=== PATIENT | male | born 1960 | race American Indian/Alaskan Native ===

== ENCOUNTER 2017-12-10 20:44 | Emergency (ER) | payer SELFPAY ==
[2017-12-10] MEDS ORDERED: NACL 0.9% 1000 ML 1,000 ML IV ONE (21:03)
[2017-12-10 21:53] LABS: Basophils % (Auto) 0.3 % (0.0-1.8); Eosinophils # (Auto) 0.1 K/mm3 (0.0-0.4); Eosinophils % (Auto) 1.2 % (0.0-4.3); Hematocrit 38.1 % (35.5-45.6); Hemoglobin 12.4 gm/dl (11.8-15.2); Lymphocytes # (Auto) 2.6 K/mm3 (1.2-5.4); Mean Corpuscular HGB Conc 33 % (32-34); Mean Corpuscular Hemoglobin 28 pg (28-32); Mean Corpuscular Volume 86 fl (84-94); Monocytes # (Auto) 0.6 K/mm3 (0.0-0.8); Platelet Count 193 K/mm3 (140-440); Red Blood Count 4.45 M/mm3 (3.65-5.03); Red Cell Distribution Width 15.2 % (13.2-15.2)
[2017-12-10 22:04] LABS: Alanine Aminotransferase 22 units/L (7-56); Albumin 4.4 g/dL (3.9-5); BUN/Creatinine Ratio 23; Blood Urea Nitrogen 16 mg/dL (9-20); Hemolysis Index 18; Lipase 247 units/L (13-60)
--- NOTE | 2017-12-10 22:23 | XRay Report ---
FINAL REPORT EXAM: XR ABDOMEN 2V HISTORY: pain TECHNIQUE: Frontal views of the abdomen and pelvis in the supine and upright positions Comparison: None FINDINGS: The bowel gas pattern is nonspecific with air in mildly distended loops of small bowel and colon with air-fluid levels on the upright view. There is no evidence of pneumoperitoneum nor organomegaly. There are calcifications projected in the region of the right kidney which may represent renal stones. The bony structures are unremarkable. IMPRESSION: 1. Nonspecific bowel gas pattern with air-fluid levels on the upright view. 2. Probable renal stones. CT abdomen and pelvis may be helpful for further evaluation.
--- NOTE | 2017-12-11 00:27 | Emergency Department Report ---
ED Abdominal Pain HPI - General Chief Complaint: Abdominal Pain Stated Complaint: CONSTIPATION,VOMITING Time Seen by Provider: 12/11/17 00:15 Source: patient Mode of arrival: Ambulatory Limitations: No Limitations - History of Present Illness Initial Comments: Patient is a 27-year-old male presents emergency room with abdominal pain 2 days. Patient states the abdominal pain is worsening. Patient states she has been constipated for the last 2 days and now he is having nausea and vomiting unable to hold any food down. Patient states the pain is generalized and at a 10 out of 10. States the pain is better with rest and worse with movement. She denies fever chills. Patient denies blood in his vomitus. Patient denies chest pain shortness of breath. MD Complaint: abdominal pain -: Sudden Location: diffuse Radiation: none Migration to: no migration Severity: severe Severity scale (0 -10): 10 Quality: cramping, stabbing, aching, fullness Consistency: constant Improves With: rest Worsens With: eating, vomiting, movement Associated Symptoms: nausea, vomiting, constipation. denies: diarrhea, fever, chills, dysuria, hematemesis, hematochezia, melena, hematuria, anorexia, syncope - Related Data Allergies Allergy/AdvReac Type Severity Reaction Status Date / Time No Known Allergies Allergy Verified 12/11/17 00:31 ED Review of Systems ROS: Stated complaint: CONSTIPATION,VOMITING Other details as noted in HPI Constitutional: denies: chills, fever Eyes: denies: eye pain, eye discharge, vision change ENT: denies: ear pain, throat pain Respiratory: denies: cough, shortness of breath, wheezing Cardiovascular: denies: chest pain, palpitations Endocrine: no symptoms reported Gastrointestinal: abdominal pain, nausea, vomiting, constipation. denies: diarrhea Genitourinary: denies: urgency, dysuria Musculoskeletal: denies: back pain, joint swelling, arthralgia Skin: denies: rash, lesions Neurological: denies: headache, weakness, paresthesias Psychiatric: denies: anxiety, depression Hematological/Lymphatic: denies: easy bleeding, easy bruising ED Past Medical Hx - Past Medical History Previous Medical History?: Yes Hx Hypertension: Yes Additional medical history: gout, - Surgical History Past Surgical History?: No - Family History Family history: no significant - Social History Smoking Status: Current Every Day Smoker Substance Use Type: Alcohol ED Physical Exam - General Limitations: No Limitations General appearance: alert, in no apparent distress - Head Head exam: Present: atraumatic, normocephalic - Eye Eye exam: Present: normal appearance - ENT ENT exam: Present: mucous membranes moist - Neck Neck exam: Present: normal inspection - Respiratory Respiratory exam: Present: normal lung sounds bilaterally. Absent: respiratory distress - Cardiovascular Cardiovascular Exam: Present: regular rate, normal rhythm. Absent: systolic murmur, diastolic murmur, rubs, gallop - GI/Abdominal GI/Abdominal exam: Present: soft, tenderness (generalized tenderness to palpation), normal bowel sounds - Rectal Rectal exam: Present: deferred - Extremities Exam Extremities exam: Present: normal inspection - Back Exam Back exam: Present: normal inspection - Neurological Exam Neurological exam: Present: alert, oriented X3 - Psychiatric Psychiatric exam: Present: normal affect, normal mood - Skin Skin exam: Present: warm, dry, intact, normal color. Absent: rash ED Course Vital Signs 12/10/17 12/10/17 12/11/17 20:53 20:59 00:32 Temperature 98.5 F 98.5 F Pulse Rate 103 H 103 H Respiratory 20 18 Rate Blood Pressure 176/104 174/103 174/92 O2 Sat by Pulse 100 Oximetry 12/11/17 00:36 Temperature Pulse Rate Respiratory 19 Rate Blood Pressure O2 Sat by Pulse Oximetry - Reevaluation(s) Reevaluation #1: Umesh results with patient. Discussed plan of care admit patient. Patient agrees to admission and plan of care 12/11/17 03:43 - Consultations Consultation #1: Hospitalist consulted for admission. Hospitalist to admit and assume care of the patient. Full report given to Dr. Vieira 12/11/17 03:41 ED Medical Decision Making - Lab Data Result diagrams: 12/10/17 21:16 12/10/17 21:16 - Radiology Data Radiology results: report reviewed FINAL REPORT EXAM: XR ABDOMEN 2V HISTORY: pain TECHNIQUE: Frontal views of the abdomen and pelvis in the supine and upright positions Comparison: None FINDINGS: The bowel gas pattern is nonspecific with air in mildly distended loops of small bowel and colon with air-fluid levels on the upright view. There is no evidence of pneumoperitoneum nor organomegaly. There are calcifications projected in the region of the right kidney which may represent renal stones. The bony structures are unremarkable. IMPRESSION: 1. Nonspecific bowel gas pattern with air-fluid levels on the upright view. 2. Probable renal stones. CT abdomen and pelvis may be helpful for further evaluation. Transcribed By: ED Dictated By: EULA NELSNO MD Electronically Authenticated By: EULA NELSON MD Signed Date/Time: 12/10/17 2222 FINAL REPORT PROCEDURE: CT ABDOMEN PELVIS W CON TECHNIQUE: Computerized axial tomography of the abdomen and pelvis was performed after the IV injection of iodinated nonionic contrast. HISTORY: abd pain COMPARISON: No prior studies are available for comparison. FINDINGS: Visualized lower thorax: No significant abnormality. Liver: Normal size and attenuation. Spleen: Normal size and attenuation. Gallbladder and biliary system: Normal. Pancreas: Normal. Adrenals: Normal. Kidneys: There are tiny stones in the right kidney. There are no ureteral stones. There is no hydronephrosis.. GI tract: There is moderate stool in the colon. There is no fecal impaction or obstruction. There is no specific evidence of colitis or enteritis. The appendix is normal. Lymph nodes and mesentery: Normal. Vasculature: Normal. Bladder: Normal. Reproductive organs: There has been a hysterectomy. Peritoneum: There is no ascites or free air, abscess or adenopathy.. Musculoskeletal structures: No significant abnormality. Other: None. IMPRESSION: There are tiny stones in the right kidney. There are no ureteral stones. There is no hydronephrosis.. There is moderate stool in the colon. There is no fecal impaction or obstruction. There is no specific evidence of colitis or enteritis. The appendix is normal. There has been a hysterectomy. There is no ascites or free air, abscess or adenopathy.. Transcribed By: CO Dictated By: ABISAI ENGLE MD Electronically Authenticated By: ABISAI ENGLE MD Signed Date/Time: 12/11/17 2798 - Medical Decision Making Patient is a 57-year-old mellitus emergency room with complaints of abdominal pain and nausea and vomiting 2 days. - Differential Diagnosis abd pain. sbo. n/v. Gastroenteritis. Dehydration Critical Care Time: Yes Critical care attestation.: If time is entered above; I have spent that time in minutes in the direct care of this critically ill patient, excluding procedure time. Critical Care Time: 35 minutes for cc time ED Disposition Clinical Impression: Hyponatremia, Hypokalemia, Dehydration Abdominal pain Qualifiers: Abdominal location: generalized Qualified Code(s): R10.84 - Generalized abdominal pain Nausea & vomiting Qualifiers: Vomiting type: unspecified Vomiting Intractability: intractable Qualified Code( s): R11.2 - Nausea with vomiting, unspecified Constipation Qualifiers: Constipation type: unspecified constipation type Qualified Code(s): K59.00 - Constipation, unspecified Disposition: -09 OP ADMIT IP TO THIS HOSP Is pt being admited?: Yes Does the pt Need Aspirin: No Condition: Serious Time of Disposition: 03:41
--- NOTE | 2017-12-11 03:39 | Cat Scan Report ---
FINAL REPORT PROCEDURE: CT ABDOMEN PELVIS W CON TECHNIQUE: Computerized axial tomography of the abdomen and pelvis was performed after the IV injection of iodinated nonionic contrast. HISTORY: abd pain COMPARISON: No prior studies are available for comparison. FINDINGS: Visualized lower thorax: No significant abnormality. Liver: Normal size and attenuation. Spleen: Normal size and attenuation. Gallbladder and biliary system: Normal. Pancreas: Normal. Adrenals: Normal. Kidneys: There are tiny stones in the right kidney. There are no ureteral stones. There is no hydronephrosis.. GI tract: There is moderate stool in the colon. There is no fecal impaction or obstruction. There is no specific evidence of colitis or enteritis. The appendix is normal. Lymph nodes and mesentery: Normal. Vasculature: Normal. Bladder: Normal. Reproductive organs: There has been a hysterectomy. Peritoneum: There is no ascites or free air, abscess or adenopathy.. Musculoskeletal structures: No significant abnormality. Other: None. IMPRESSION: There are tiny stones in the right kidney. There are no ureteral stones. There is no hydronephrosis.. There is moderate stool in the colon. There is no fecal impaction or obstruction. There is no specific evidence of colitis or enteritis. The appendix is normal. There has been a hysterectomy. There is no ascites or free air, abscess or adenopathy..
[2017-12-11] MEDS ORDERED: K-DUR PO ONE ×2 (05:32→05:39)
[2017-12-11 05:54] VITALS: BP 173/106
--- NOTE | 2017-12-11 05:55 | Event Note ---
<PAUL BONILLA - Last Filed: 12/11/17 05:39> Date: 12/11/17 Pt refuses too be admitted, risk of leaving the hospital AMA was explained to pt , voiced understanding. <BOSSMAN TOMLINSON - Last Filed: 12/11/17 06:27> Discussed with patient admission, states he has to go to work. Risks and benefits explained to him. Replete potassium. Instructed to follow with his doctor as soon as possible
== END 2017-12-11 05:54 | disposition admitted as inpatient to this hospital (09) ==
LOC: EDSEX → ED 20:44
DX: E87.1 Hypo-osmolality and hyponatremia (principal); E86.0 Dehydration; K59.00 Constipation, unspecified; R11.2 Nausea with vomiting, unspecified; R10.84 Generalized abdominal pain; I10 Essential (primary) hypertension; M10.9 Gout, unspecified; F17.200 Nicotine dependence, unspecified, uncomplicated
CPT/HCPCS: 36415; 74019; 74177; 80053; 82140; 83690; 85025; 99291; Q9967

== ENCOUNTER 2017-12-11 10:22 | Emergency (ER) | payer SELFPAY ==
[2017-12-11 10:52] LABS: Basophils % (Auto) 0.5 % (0.0-1.8); Eosinophils % (Auto) 0.7 % (0.0-4.3); Hematocrit 37.6 % (35.5-45.6); Hemoglobin 12.6 gm/dl (11.8-15.2); Lymphocytes # (Auto) 2.2 K/mm3 (1.2-5.4); Lymphocytes % (Auto) 40.9 % (13.4-35.0); Mean Corpuscular HGB Conc 34 % (32-34); Mean Corpuscular Hemoglobin 28 pg (28-32); Mean Corpuscular Volume 83 fl (84-94); Monocytes # (Auto) 0.6 K/mm3 (0.0-0.8); Monocytes % (Auto) 11.7 % (0.0-7.3); Platelet Count 193 K/mm3 (140-440); Red Blood Count 4.55 M/mm3 (3.65-5.03); Red Cell Distribution Width 15.2 % (13.2-15.2)
[2017-12-11 11:09] LABS: Hemolysis Index 0
[2017-12-11] MEDS ORDERED: PROTONIX IV ONE ×2 (11:09→14:39)
[2017-12-11] MEDS ORDERED: MORPHINE IV ONE (11:09)
[2017-12-11] MEDS ORDERED: ZOFRAN IV ONE (11:09)
[2017-12-11 11:11] LABS: Creatine Kinase MB 5.1 ng/mL (0.0-4.0)
[2017-12-11 11:12] LABS: Alanine Aminotransferase 21 units/L (7-56); Albumin 4.6 g/dL (3.9-5); Lipase 187 units/L (13-60)
[2017-12-11 11:18] LABS: Bilirubin,Direct < 0.2 mg/dL (0-0.2)
--- NOTE | 2017-12-11 11:34 | Emergency Department Report ---
ED Abdominal Pain HPI - General Chief Complaint: Abdominal Pain Stated Complaint: GENERAL ILLNESS Time Seen by Provider: 12/11/17 10:42 Source: patient, EMS Mode of arrival: Ambulatory Limitations: No Limitations - History of Present Illness Initial Comments: 57-year-old male states she's had intermittent abdominal pain for the last 4 days. He states it does not radiate. He is admittedly noncompliant with his blood pressure medicine which she does not recall the name of except that it started with a "P". He was seen here yesterday. It appears he'll looked or left AGAINST MEDICAL ADVICE at about 6 AM he states when mission was recommended. Yesterday I do note his laboratory tests suggested that he had an elevated lipase and metabolic acidosis as well as hyponatremia and hypokalemia. He states he has been vomiting. He states he went home and tried to drink something but vomited. Then he decided to come back. He stated that his emesis has occasionally been dark but he has not seen any blood. He denied any dark, black or tarry stools. He does not report fever or chills. He states he' s never been to the emergency department for evaluation of abdominal pain. He admits alcohol use but states he has no shakiness when he stops drinking. His had no recent alcohol consumption. He describes pain as a dull ache in the epigastric region. MD Complaint: abdominal pain -: days(s) Location: epigastric Radiation: none Migration to: no migration Severity: moderate Quality: aching Consistency: intermittent Improves With: nothing Worsens With: nothing Associated Symptoms: vomiting - Related Data Allergies Allergy/AdvReac Type Severity Reaction Status Date / Time No Known Allergies Allergy Verified 12/11/17 00:31 ED Review of Systems ROS: Stated complaint: GENERAL ILLNESS Other details as noted in HPI Constitutional: weakness. denies: chills, fever Eyes: denies: eye pain, eye discharge, vision change ENT: denies: ear pain, throat pain Respiratory: denies: cough, shortness of breath, wheezing Cardiovascular: denies: chest pain, palpitations Endocrine: no symptoms reported Gastrointestinal: abdominal pain, nausea, vomiting. denies: diarrhea Genitourinary: denies: urgency, dysuria Musculoskeletal: denies: back pain, joint swelling, arthralgia Skin: denies: rash, lesions Neurological: denies: headache, weakness, paresthesias Psychiatric: denies: anxiety, depression Hematological/Lymphatic: denies: easy bleeding, easy bruising ED Past Medical Hx - Past Medical History Previous Medical History?: Yes Hx Hypertension: Yes Hx Arthritis: Yes (GOUT) Additional medical history: gout, - Surgical History Past Surgical History?: No - Social History Smoking Status: Current Every Day Smoker Substance Use Type: Alcohol ED Physical Exam - General Limitations: No Limitations General appearance: alert, in no apparent distress - Head Head exam: Present: atraumatic, normocephalic - Eye Eye exam: Present: normal appearance. Absent: PERRL, EOMI, scleral icterus - ENT ENT exam: Present: mucous membranes moist - Neck Neck exam: Present: normal inspection. Absent: tenderness, meningismus - Respiratory Respiratory exam: Present: normal lung sounds bilaterally. Absent: respiratory distress - Cardiovascular Cardiovascular Exam: Present: regular rate, normal rhythm. Absent: systolic murmur, diastolic murmur, rubs, gallop - GI/Abdominal GI/Abdominal exam: Present: soft, tenderness (epigastric mild to moderate), normal bowel sounds. Absent: distended, guarding, rebound, rigid, organomegaly , mass, bruit, pulsatile mass, hernia - Rectal Rectal exam: Present: deferred - Extremities Exam Extremities exam: Present: normal inspection - Back Exam Back exam: Present: normal inspection. Absent: CVA tenderness (R), CVA tenderness (L) - Neurological Exam Neurological exam: Present: alert, oriented X3, CN II-XII intact. Absent: motor sensory deficit - Psychiatric Psychiatric exam: Present: normal affect, normal mood - Skin Skin exam: Present: warm, dry, intact, normal color. Absent: rash ED Course Vital Signs 12/11/17 10:24 Temperature 98.4 F Pulse Rate 109 H Respiratory 16 Rate Blood Pressure 165/113 O2 Sat by Pulse 100 Oximetry - Reevaluation(s) Reevaluation #1: Patient was given IV fluids. His blood pressure was monitored. He was found to have an extremely elevated anion gap. His lipase was less than yesterday. His CO2 was now 10 compared to 15. Additional workup for his metabolic acidosis was ordered. He was given IV antibiotics for possible intra-abdominal infection. A repeat CT was ordered. A lactic acid level is pending. Obviously the patient will be admitted to the hospital. Further diagnostic screening is pending. I will confer with the hospitalist. 12/11/17 12:16 Reevaluation #2: I spoke to the left now twice about repeating the patient's BMP. They tell me the volume was low. I really don't think the patient's anion gap is likely to be 68. In any case he is received IV fluids and empiric antibiotics. A repeat CT showed nothing acute and right nephrolithiasis. A urine specimen is yet pending. The case is now referred to the hospitalist further care and evaluation. The patient remains hemodynamically stable. 12/11/17 13:27 ED Medical Decision Making - Lab Data Result diagrams: 12/11/17 10:30 12/11/17 10:30 Laboratory Results - last 24 hr 12/11/17 12/11/17 12/11/17 10:30 10:30 10:30 WBC 5.5 RBC 4.55 Hgb 12.6 Hct 37.6 MCV 83 L MCH 28 MCHC 34 RDW 15.2 Plt Count 193 Lymph % (Auto) 40.9 H [place] % (Auto) 11.7 H Eos % (Auto) 0.7 Baso % (Auto) 0.5 Lymph # 2.2 [place] # 0.6 Eos # 0.0 Baso # 0.0 Seg Neutrophils % 46.2 Seg Neutrophils # 2.5 Potassium 3.1 L Chloride 60.0 L Estimated GFR > 60 Magnesium 2.10 Total Bilirubin Direct Bilirubin Indirect Bilirubin AST ALT Alkaline Phosphatase Total Creatine Kinase CK-MB (CK-2) CK-MB (CK-2) Rel Index Total Protein Albumin Albumin/Globulin Ratio Lipase 12/11/17 10:30 WBC RBC Hgb Hct MCV MCH MCHC RDW Plt Count Lymph % (Auto) [place] % (Auto) Eos % (Auto) Baso % (Auto) Lymph # [place] # Eos # Baso # Seg Neutrophils % Seg Neutrophils # Potassium Chloride Estimated GFR Magnesium Total Bilirubin 0.30 Direct Bilirubin < 0.2 Indirect Bilirubin 0.1 AST 23 ALT 21 Alkaline Phosphatase 82 Total Creatine Kinase 162 CK-MB (CK-2) 5.1 H CK-MB (CK-2) Rel Index 3.1 Total Protein 8.1 Albumin 4.6 Albumin/Globulin Ratio 1.3 Lipase 187 H Laboratory Results - last 24 hr 12/11/17 12/11/17 12/11/17 10:30 10:30 10:30 WBC 5.5 RBC 4.55 Hgb 12.6 Hct 37.6 MCV 83 L MCH 28 MCHC 34 RDW 15.2 Plt Count 193 Lymph % (Auto) 40.9 H [place] % (Auto) 11.7 H Eos % (Auto) 0.7 Baso % (Auto) 0.5 Lymph # 2.2 [place] # 0.6 Eos # 0.0 Baso # 0.0 Seg Neutrophils % 46.2 Seg Neutrophils # 2.5 Sodium 135 L D Potassium 3.1 L Chloride 60.0 L Carbon Dioxide 10 L Anion Gap 68 BUN 12 Creatinine 0.7 L Estimated GFR > 60 BUN/Creatinine Ratio 17 Glucose 175 H Calcium 9.2 Magnesium 2.10 Total Bilirubin Direct Bilirubin Indirect Bilirubin AST ALT Alkaline Phosphatase Total Creatine Kinase CK-MB (CK-2) CK-MB (CK-2) Rel Index Total Protein Albumin Albumin/Globulin Ratio Lipase 12/11/17 10:30 WBC RBC Hgb Hct MCV MCH MCHC RDW Plt Count Lymph % (Auto) [place] % (Auto) Eos % (Auto) Baso % (Auto) Lymph # [place] # Eos # Baso # Seg Neutrophils % Seg Neutrophils # Sodium Potassium Chloride Carbon Dioxide Anion Gap BUN Creatinine Estimated GFR BUN/Creatinine Ratio Glucose Calcium Magnesium Total Bilirubin 0.30 Direct Bilirubin < 0.2 Indirect Bilirubin 0.1 AST 23 ALT 21 Alkaline Phosphatase 82 Total Creatine Kinase 162 CK-MB (CK-2) 5.1 H CK-MB (CK-2) Rel Index 3.1 Total Protein 8.1 Albumin 4.6 Albumin/Globulin Ratio 1.3 Lipase 187 H Laboratory Results - last 24 hr 12/11/17 12/11/17 12/11/17 10:30 10:30 10:30 WBC 5.5 RBC 4.55 Hgb 12.6 Hct 37.6 MCV 83 L MCH 28 MCHC 34 RDW 15.2 Plt Count 193 Lymph % (Auto) 40.9 H [place] % (Auto) 11.7 H Eos % (Auto) 0.7 Baso % (Auto) 0.5 Lymph # 2.2 [place] # 0.6 Eos # 0.0 Baso # 0.0 Seg Neutrophils % 46.2 Seg Neutrophils # 2.5 PT INR APTT Sodium 135 L D Potassium 3.1 L Chloride 60.0 L Carbon Dioxide 10 L Anion Gap 68 BUN 12 Creatinine 0.7 L Estimated GFR > 60 BUN/Creatinine Ratio 17 Glucose 175 H Lactic Acid Calcium 9.2 Magnesium 2.10 Total Bilirubin Direct Bilirubin Indirect Bilirubin AST ALT Alkaline Phosphatase Ammonia Total Creatine Kinase CK-MB (CK-2) CK-MB (CK-2) Rel Index Total Protein Albumin Albumin/Globulin Ratio Lipase 12/11/17 12/11/17 12/11/17 10:30 12:11 12:11 WBC RBC Hgb Hct MCV MCH MCHC RDW Plt Count Lymph % (Auto) [place] % (Auto) Eos % (Auto) Baso % (Auto) Lymph # [place] # Eos # Baso # Seg Neutrophils % Seg Neutrophils # PT 12.5 INR 0.89 APTT 27.9 Sodium Potassium Chloride Carbon Dioxide Anion Gap BUN Creatinine Estimated GFR BUN/Creatinine Ratio Glucose Lactic Acid 2.00 Calcium Magnesium Total Bilirubin 0.30 Direct Bilirubin < 0.2 Indirect Bilirubin 0.1 AST 23 ALT 21 Alkaline Phosphatase 82 Ammonia Total Creatine Kinase 162 CK-MB (CK-2) 5.1 H CK-MB (CK-2) Rel Index 3.1 Total Protein 8.1 Albumin 4.6 Albumin/Globulin Ratio 1.3 Lipase 187 H 12/11/17 12:11 WBC RBC Hgb Hct MCV MCH MCHC RDW Plt Count Lymph % (Auto) [place] % (Auto) Eos % (Auto) Baso % (Auto) Lymph # [place] # Eos # Baso # Seg Neutrophils % Seg Neutrophils # PT INR APTT Sodium Potassium Chloride Carbon Dioxide Anion Gap BUN Creatinine Estimated GFR BUN/Creatinine Ratio Glucose Lactic Acid Calcium Magnesium Total Bilirubin Direct Bilirubin Indirect Bilirubin AST ALT Alkaline Phosphatase Ammonia 42.0 Total Creatine Kinase CK-MB (CK-2) CK-MB (CK-2) Rel Index Total Protein Albumin Albumin/Globulin Ratio Lipase Laboratory Results - last 24 hr 12/11/17 12/11/17 12/11/17 10:30 10:30 10:30 WBC 5.5 RBC 4.55 Hgb 12.6 Hct 37.6 MCV 83 L MCH 28 MCHC 34 RDW 15.2 Plt Count 193 Lymph % (Auto) 40.9 H [place] % (Auto) 11.7 H Eos % (Auto) 0.7 Baso % (Auto) 0.5 Lymph # 2.2 [place] # 0.6 Eos # 0.0 Baso # 0.0 Seg Neutrophils % 46.2 Seg Neutrophils # 2.5 PT INR APTT Sodium 135 L D Potassium 3.1 L Chloride 60.0 L Carbon Dioxide 10 L Anion Gap 68 BUN 12 Creatinine 0.7 L Estimated GFR > 60 BUN/Creatinine Ratio 17 Glucose 175 H Ketones Quantitative Lactic Acid Calcium 9.2 Magnesium 2.10 Total Bilirubin Direct Bilirubin Indirect Bilirubin AST ALT Alkaline Phosphatase Ammonia Total Creatine Kinase CK-MB (CK-2) CK-MB (CK-2) Rel Index Troponin T Total Protein Albumin Albumin/Globulin Ratio Amylase Lipase 12/11/17 12/11/17 12/11/17 10:30 12:11 12:11 WBC RBC Hgb Hct MCV MCH MCHC RDW Plt Count Lymph % (Auto) [place] % (Auto) Eos % (Auto) Baso % (Auto) Lymph # [place] # Eos # Baso # Seg Neutrophils % Seg Neutrophils # PT 12.5 INR 0.89 APTT 27.9 Sodium Potassium Chloride Carbon Dioxide Anion Gap BUN Creatinine Estimated GFR BUN/Creatinine Ratio Glucose Ketones Quantitative Lactic Acid 2.00 Calcium Magnesium Total Bilirubin 0.30 Direct Bilirubin < 0.2 Indirect Bilirubin 0.1 AST 23 ALT 21 Alkaline Phosphatase 82 Ammonia Total Creatine Kinase 162 CK-MB (CK-2) 5.1 H CK-MB (CK-2) Rel Index 3.1 Troponin T Total Protein 8.1 Albumin 4.6 Albumin/Globulin Ratio 1.3 Amylase Lipase 187 H 12/11/17 12/11/17 12/11/17 12:11 12:11 12:11 WBC RBC Hgb Hct MCV MCH MCHC RDW Plt Count Lymph % (Auto) [place] % (Auto) Eos % (Auto) Baso % (Auto) Lymph # [place] # Eos # Baso # Seg Neutrophils % Seg Neutrophils # PT INR APTT Sodium Potassium Chloride Carbon Dioxide Anion Gap BUN Creatinine Estimated GFR BUN/Creatinine Ratio Glucose Ketones Quantitative Negative Lactic Acid Calcium Magnesium Total Bilirubin Direct Bilirubin Indirect Bilirubin AST ALT Alkaline Phosphatase Ammonia 42.0 Total Creatine Kinase CK-MB (CK-2) 4.7 H CK-MB (CK-2) Rel Index Troponin T < 0.010 Total Protein Albumin Albumin/Globulin Ratio Amylase 123 Lipase Critical Care Time: Yes Critical care time in (mins) excluding proc time.: 60 Critical care attestation.: If time is entered above; I have spent that time in minutes in the direct care of this critically ill patient, excluding procedure time. ED Disposition Clinical Impression: Hyponatremia, Hypokalemia, Dehydration, Metabolic acidosis, increased anion gap Abdominal pain Qualifiers: Abdominal location: epigastric Qualified Code(s): R10.13 - Epigastric pain Nausea & vomiting Qualifiers: Vomiting type: unspecified Vomiting Intractability: non-intractable Qualified Code(s): R11.2 - Nausea with vomiting, unspecified Disposition: 09 OP ADMIT IP TO THIS HOSP Is pt being admited?: Yes Does the pt Need Aspirin: No Condition: Stable Referrals: PRIMARY CARE, [Primary Care Provider] - 3-5 Days Time of Disposition: 13:31
[2017-12-11] MEDS ORDERED: NACL 0.9% 1000 ML 1,000 ML IV ONE ×2 (11:38→13:30)
[2017-12-11 11:41] LABS: BUN/Creatinine Ratio 17; Blood Urea Nitrogen 12 mg/dL (9-20); Calcium 9.2 mg/dL (8.4-10.2)
[2017-12-11] MEDS ORDERED: ZOSYN/NS 3.375GM/50ML 3.375 GM/50 ML BAG IV ONE (12:24)
[2017-12-11 12:39] LABS: INR 0.89 (0.87-1.13)
[2017-12-11 12:40] LABS: Partial Thromboplastin Time 27.9 Sec. (24.2-36.6)
[2017-12-11 12:51] LABS: Creatine Kinase MB 4.7 ng/mL (0.0-4.0)
--- NOTE | 2017-12-11 12:57 | Cat Scan Report ---
CT ABDOMEN PELVIS WITH CONTRAST: HISTORY: Epigastric pain, metabolic acidosis. COMPARISON: 12/11/17. TECHNIQUE: Helical CT in 1.25mm intervals following IV contrast. Sagittal and coronal reconstructions. FINDINGS: Lung bases: Normal. Liver: Normal. Biliary system: Normal. Pancreas: Normal. Spleen: Normal. Kidneys/ureters/bladder: A few calyceal stones in the right kidney appears stable. The kidneys, collecting systems and bladder are within normal limits otherwise. Adrenal glands: Normal. Aorta: Normal. Intestines: No evidence for bowel obstruction or focal inflammation. Appendix: Normal. Pelvic viscera: Hysterectomy. Ascites: None. Adenopathy: None. Musculoskeletal: Intact. Mild lumbar spondylosis. IMPRESSION: No acute process is identified in the abdomen or pelvis. Right nephrolithiasis, unchanged.
[2017-12-11] MEDS ORDERED: K-DUR PO ONE (13:29)
[2017-12-11] MEDS ORDERED: THERAGRAN Tab PO ONE (13:35)
[2017-12-11 13:39] LABS: BUN/Creatinine Ratio 18; Blood Urea Nitrogen 11 mg/dL (9-20); Calcium 8.9 mg/dL (8.4-10.2); Hemolysis Index 20
[2017-12-11 14:11] LABS: Bilirubin,Urine NEG (Negative); Blood,Urine SM (Negative); Color,Urine Straw (Yellow); Mucus,Urine FEW /HPF; Protein,Urine <15 mg/dL mg/dL (Negative); Urobilinogen,Urine < 2.0 mg/dL (<2.0)
[2017-12-11 14:19] LABS: Amphetamine Screen,Urine PRESUMPTIVE NEGATIVE; Benzodiazepines Screen,Urine PRESUMPTIVE NEGATIVE; Cannabinoid Screen,Urine PRESUMPTIVE NEGATIVE; Cocaine Screen,Urine PRESUMPTIVE NEGATIVE; Methadone Screen,Urine PRESUMPTIVE NEGATIVE; Opiate Screen,Urine PRESUMPTIVE NEGATIVE
[2017-12-11] MEDS ORDERED: VITAMIN B-1 100 MG in NACL 0.9% 50 ML IV ONE (14:33)
[2017-12-11] MEDS ORDERED: CARAFATE PO ONE (14:34)
[2017-12-11 18:16] VITALS: BP 162/88
[2017-12-12] MEDS ORDERED: FOLVITE PO SCH (10:00)
== END 2017-12-11 18:36 | disposition admitted as inpatient to this hospital (09) ==
LOC: ED 10:22
DX: E86.0 Dehydration (principal); R11.2 Nausea with vomiting, unspecified; E87.6 Hypokalemia; E87.2 Acidosis; I10 Essential (primary) hypertension; M19.90 Unspecified osteoarthritis, unspecified site; F17.200 Nicotine dependence, unspecified, uncomplicated
CPT/HCPCS: 36415; 74177; 80048; 80074; 80307; 81001; 82010; 82140; 82150; 82550; 82553; 83690; 83735; 84484; 85025; 85610; 85730; 87040; 87086; 96361; 96365; 96367; 96375; 99291; C9113; G0480; J2270; J2405; J2543; J3411; J7030; Q9967; 80320

== ENCOUNTER 2018-04-27 13:17 | Emergency (ER) | payer SELFPAY ==
--- NOTE | 2018-04-27 13:26 | Emergency Department Report ---
Blank Doc - Documentation Documentation: This is a 57-year-old male that presents with nausea, vomiting, abdominal pain, and diarrhea x2 months. Patient also has left leg open wound. Denies taking medications for DM or HTN. Denies any other complaints. This initial assessment diagnostic orders/clinical plan/treatment(s) is/are subject to change based on patient's health status, clinical progression and re- assessment by fellow clinical providers in the ED. Further treatment and workup at subsequent clinical providers discretion. Patient/guardians urged not to elope from ED s their condition may be serious if not clinically assessed and managed. Initial orders include: 1-Patient sent to [facility] for further evaluation and treatment 2- LAbs 3- UA
[2018-04-27 14:30] LABS: Basophils % (Auto) 0.3 % (0.0-1.8); Eosinophils # (Auto) 0.1 K/mm3 (0.0-0.4); Eosinophils % (Auto) 0.9 % (0.0-4.3); Hematocrit 35.3 % (35.5-45.6); Hemoglobin 11.4 gm/dl (11.8-15.2); Lymphocytes # (Auto) 2.4 K/mm3 (1.2-5.4); Lymphocytes % (Auto) 35.3 % (13.4-35.0); Mean Corpuscular HGB Conc 32 % (32-34); Mean Corpuscular Volume 78 fl (84-94); Monocytes # (Auto) 0.7 K/mm3 (0.0-0.8); Monocytes % (Auto) 9.6 % (0.0-7.3); Platelet Count 310 K/mm3 (140-440); Red Blood Count 4.56 M/mm3 (3.65-5.03); Red Cell Distribution Width 18.5 % (13.2-15.2)
[2018-04-27 14:56] LABS: Alanine Aminotransferase 24 units/L (7-56); Albumin 4.2 g/dL (3.9-5); BUN/Creatinine Ratio 18; Blood Urea Nitrogen 14 mg/dL (9-20); Calcium 9.5 mg/dL (8.4-10.2); Hemolysis Index 7
--- NOTE | 2018-04-27 17:56 | Emergency Department Report ---
Vomiting/Diarrhea - HPI Chief Complaint: Nausea/Vomiting/Diarrhea Stated Complaint: DIARRHEA Time Seen by Provider: 04/27/18 13:24 Duration: 3-4 months Severity: moderate Nausea/Vomiting Severity: Mild Diarrhea Severity: None Pain Location: Other (left amor) Pain Severity: Moderate Symptoms: Yes Able to Tolerate Fluids, No Watery Diarrhea, No Bloody diarrhea, No Fever, No Recent Unusual Foods, No Recent Untreated Water, No Recent use of Antibiotics, No Family w/ Similar Symptoms, No Contacts w/ Similar Symptoms, No Rash, No Hematuria, No Recent URI Symptoms Other History: This is a 57-year-old -[place] male who presents with diarrhea for 3-4 months. He also reports abdominal pain and dysuria. Patient states he was seen here 4 months ago and diagnosed with new onset diabetes. He was started on medication but unable to refill prescriptions because he does not have a primary care provider or insurance. He reported his wounds to bilateral great toes have not improved and is the new wound to left amor that is increasing in size. ED Review of Systems ROS: Stated complaint: DIARRHEA Other details as noted in HPI Constitutional: denies: chills, fever Respiratory: denies: cough, shortness of breath, wheezing Cardiovascular: denies: chest pain, palpitations Gastrointestinal: abdominal pain, diarrhea. denies: nausea Genitourinary: denies: urgency, dysuria Skin: other (ulcer to left amor and bilateral great toes). denies: rash, lesions Neurological: denies: headache, weakness, paresthesias Psychiatric: denies: anxiety, depression ED Past Medical Hx - Past Medical History Hx Hypertension: Yes Hx Congestive Heart Failure: No Hx Diabetes: Yes (Family history: mother, brother, sister) Hx Arthritis: Yes (GOUT) Hx Asthma: No Hx COPD: No Additional medical history: gout, - Surgical History Past Surgical History?: No - Social History Smoking Status: Current Every Day Smoker Substance Use Type: None - Medications Home Medications: Home Medications Medication Instructions Recorded Confirmed Last Taken Type Acetaminophen [Tylenol] 500 mg PO Q4HR 02/26/18 02/26/18 Unknown History Clindamycin [Clindamycin CAP] 300 mg PO Q8H #21 cap 02/28/18 Unknown Rx Gabapentin [Neurontin] 100 mg PO Q8HR #90 capsule 04/27/18 Unknown Rx Pantoprazole [Protonix TAB] 40 mg PO QDAY #30 tablet 04/27/18 Unknown Rx hydroCHLOROthiazide [HCTZ] 12.5 mg PO QDAY #30 capsule 04/27/18 Unknown Rx metFORMIN [Glucophage] 500 mg PO BID #60 tablet 04/27/18 Unknown Rx Vomiting Diarrhea Exam - Exam General: Vital signs noted. No distress. Alert and acting appropriately. HEENT: Yes Moist Mucous Membranes, No Pharyngeal Erythema, No Pharyngeal Exudate s, No Rhinorrhea, No Conjuctival Injection, No Frontal Tenderness, No Maxillary Tenderness Neck: No Adenopathy, No Rigidity Lungs: Yes Clear Lung Sounds, Yes Good Air Exchange, No Wheezes, No Stridor, No Cough, No Nasal Flaring, No Retractions, No Use of Accessory Muscles Heart exam: Regular: Yes, Murmur: No, Tachycardia: No Abdomen: Tenderness: No, Peritoneal Signs: No, Distention: No, Hyperactive Bowel sounds: No Skin exam: Rash: No (right great toe ulceration annular 2 cm. Left great toe ulcer annular 1 cm. Superficial ulcer on the right anterior LLE tibial region, no drainage or surrounding cellulitis, nontender), Edema: No, Normal turgor: Yes Neurologic: Alert and oriented, no deficits. Musculoskeletal: Unremarkable. ED Course Vital Signs 04/27/18 13:26 Temperature 97.9 F Pulse Rate 89 Respiratory 20 Rate Blood Pressure 198/105 O2 Sat by Pulse 100 Oximetry ED Medical Decision Making - Lab Data Result diagrams: 04/27/18 14:04 04/27/18 21:40 Lab Results 04/27/18 04/27/18 04/27/18 Range/Units 13:33 14:04 14:04 WBC 6.8 (4.5-11.0) K/mm3 RBC 4.56 (3.65-5.03) M/mm3 Hgb 11.4 L (11.8-15.2) gm/dl Hct 35.3 L (35.5-45.6) % MCV 78 L (84-94) fl MCH 25 L (28-32) pg MCHC 32 (32-34) % RDW 18.5 H (13.2-15.2) % Plt Count 310 (140-440) K/mm3 Lymph % (Auto) 35.3 H (13.4-35.0) % [place] % (Auto) 9.6 H (0.0-7.3) % Eos % (Auto) 0.9 (0.0-4.3) % Baso % (Auto) 0.3 (0.0-1.8) % Lymph # 2.4 (1.2-5.4) K/mm3 [place] # 0.7 (0.0-0.8) K/mm3 Eos # 0.1 (0.0-0.4) K/mm3 Baso # 0.0 (0.0-0.1) K/mm3 Seg Neutrophils % 53.9 (40.0-70.0) % Seg Neutrophils # 3.7 (1.8-7.7) K/mm3 VBG pH (7.320-7.420) Sodium 141 (137-145) mmol/L Potassium 3.7 (3.6-5.0) mmol/L Chloride 109.1 H (98-107) mmol/L Carbon Dioxide 16 L (22-30) mmol/L Anion Gap 20 mmol/L BUN 14 (9-20) mg/dL Creatinine 0.8 (0.8-1.5) mg/dL Estimated GFR > 60 ml/min BUN/Creatinine Ratio 18 % Glucose 205 H (75-100) mg/dL POC Glucose 258 H (70-105) Calcium 9.5 (8.4-10.2) mg/dL Total Bilirubin 0.20 (0.1-1.2) mg/dL AST 25 (5-40) units/L ALT 24 (7-56) units/L Alkaline Phosphatase 111 (35-129) units/L Total Protein 8.1 (6.3-8.2) g/dL Albumin 4.2 (3.9-5) g/dL Albumin/Globulin Ratio 1.1 % Lipase 23 (13-60) units/L Urine Color (Yellow) Urine Turbidity (Clear) Urine pH (5.0-7.0) Ur Specific [place] (1.003-1.030) Urine Protein (Negative) mg/dL Urine Glucose (UA) (Negative) mg/dL Urine Ketones (Negative) mg/dL Urine Blood (Negative) Urine Nitrite (Negative) Urine Bilirubin (Negative) Urine Urobilinogen (<2.0) mg/dL Ur Leukocyte Esterase (Negative) Urine WBC (Auto) (0.0-6.0) /HPF Urine RBC (Auto) (0.0-6.0) /HPF Calcium Oxalate Crystal Urine Mucus /HPF 04/27/18 04/27/18 Range/Units 14:04 17:48 WBC (4.5-11.0) K/mm3 RBC (3.65-5.03) M/mm3 Hgb (11.8-15.2) gm/dl Hct (35.5-45.6) % MCV (84-94) fl MCH (28-32) pg MCHC (32-34) % RDW (13.2-15.2) % Plt Count (140-440) K/mm3 Lymph % (Auto) (13.4-35.0) % [place] % (Auto) (0.0-7.3) % Eos % (Auto) (0.0-4.3) % Baso % (Auto) (0.0-1.8) % Lymph # (1.2-5.4) K/mm3 [place] # (0.0-0.8) K/mm3 Eos # (0.0-0.4) K/mm3 Baso # (0.0-0.1) K/mm3 Seg Neutrophils % (40.0-70.0) % Seg Neutrophils # (1.8-7.7) K/mm3 VBG pH 7.238 L (7.320-7.420) Sodium (137-145) mmol/L Potassium (3.6-5.0) mmol/L Chloride (98-107) mmol/L Carbon Dioxide (22-30) mmol/L Anion Gap mmol/L BUN (9-20) mg/dL Creatinine (0.8-1.5) mg/dL Estimated GFR ml/min BUN/Creatinine Ratio % Glucose (75-100) mg/dL POC Glucose (70-105) Calcium (8.4-10.2) mg/dL Total Bilirubin (0.1-1.2) mg/dL AST (5-40) units/L ALT (7-56) units/L Alkaline Phosphatase (35-129) units/L Total Protein (6.3-8.2) g/dL Albumin (3.9-5) g/dL Albumin/Globulin Ratio % Lipase (13-60) units/L Urine Color Yellow (Yellow) Urine Turbidity Slightly-cloudy (Clear) Urine pH 5.0 (5.0-7.0) Ur Specific [place] 1.021 (1.003-1.030) Urine Protein 100 mg/dl (Negative) mg/dL Urine Glucose (UA) 50 (Negative) mg/dL Urine Ketones Neg (Negative) mg/dL Urine Blood Sm (Negative) Urine Nitrite Neg (Negative) Urine Bilirubin Neg (Negative) Urine Urobilinogen < 2.0 (<2.0) mg/dL Ur Leukocyte Esterase Tr (Negative) Urine WBC (Auto) 32.0 H (0.0-6.0) /HPF Urine RBC (Auto) 15.0 (0.0-6.0) /HPF Calcium Oxalate Crystal 3+ Urine Mucus Few /HPF Lab Results 04/27/18 04/27/18 04/27/18 Range/Units 13:33 14:04 14:04 WBC 6.8 (4.5-11.0) K/mm3 RBC 4.56 (3.65-5.03) M/mm3 Hgb 11.4 L (11.8-15.2) gm/dl Hct 35.3 L (35.5-45.6) % MCV 78 L (84-94) fl MCH 25 L (28-32) pg MCHC 32 (32-34) % RDW 18.5 H (13.2-15.2) % Plt Count 310 (140-440) K/mm3 Lymph % (Auto) 35.3 H (13.4-35.0) % [place] % (Auto) 9.6 H (0.0-7.3) % Eos % (Auto) 0.9 (0.0-4.3) % Baso % (Auto) 0.3 (0.0-1.8) % Lymph # 2.4 (1.2-5.4) K/mm3 [place] # 0.7 (0.0-0.8) K/mm3 Eos # 0.1 (0.0-0.4) K/mm3 Baso # 0.0 (0.0-0.1) K/mm3 Seg Neutrophils % 53.9 (40.0-70.0) % Seg Neutrophils # 3.7 (1.8-7.7) K/mm3 VBG pH (7.320-7.420) Sodium 141 (137-145) mmol/L Potassium 3.7 (3.6-5.0) mmol/L Chloride 109.1 H (98-107) mmol/L Carbon Dioxide 16 L (22-30) mmol/L Anion Gap 20 mmol/L BUN 14 (9-20) mg/dL Creatinine 0.8 (0.8-1.5) mg/dL Estimated GFR > 60 ml/min BUN/Creatinine Ratio 18 % Glucose 205 H (75-100) mg/dL POC Glucose 258 H (70-105) Calcium 9.5 (8.4-10.2) mg/dL Total Bilirubin 0.20 (0.1-1.2) mg/dL AST 25 (5-40) units/L ALT 24 (7-56) units/L Alkaline Phosphatase 111 (35-129) units/L Total Protein 8.1 (6.3-8.2) g/dL Albumin 4.2 (3.9-5) g/dL Albumin/Globulin Ratio 1.1 % Lipase 23 (13-60) units/L Urine Color (Yellow) Urine Turbidity (Clear) Urine pH (5.0-7.0) Ur Specific [place] (1.003-1.030) Urine Protein (Negative) mg/dL Urine Glucose (UA) (Negative) mg/dL Urine Ketones (Negative) mg/dL Urine Blood (Negative) Urine Nitrite (Negative) Urine Bilirubin (Negative) Urine Urobilinogen (<2.0) mg/dL Ur Leukocyte Esterase (Negative) Urine WBC (Auto) (0.0-6.0) /HPF Urine RBC (Auto) (0.0-6.0) /HPF Calcium Oxalate Crystal Urine Mucus /HPF 04/27/18 04/27/18 04/27/18 Range/Units 14:04 17:48 21:40 WBC (4.5-11.0) K/mm3 RBC (3.65-5.03) M/mm3 Hgb (11.8-15.2) gm/dl Hct (35.5-45.6) % MCV (84-94) fl MCH (28-32) pg MCHC (32-34) % RDW (13.2-15.2) % Plt Count (140-440) K/mm3 Lymph % (Auto) (13.4-35.0) % [place] % (Auto) (0.0-7.3) % Eos % (Auto) (0.0-4.3) % Baso % (Auto) (0.0-1.8) % Lymph # (1.2-5.4) K/mm3 [place] # (0.0-0.8) K/mm3 Eos # (0.0-0.4) K/mm3 Baso # (0.0-0.1) K/mm3 Seg Neutrophils % (40.0-70.0) % Seg Neutrophils # (1.8-7.7) K/mm3 VBG pH 7.238 L (7.320-7.420) Sodium 145 (137-145) mmol/L Potassium 3.5 L (3.6-5.0) mmol/L Chloride 118.2 H (98-107) mmol/L Carbon Dioxide 13 L (22-30) mmol/L Anion Gap 17 mmol/L BUN 12 (9-20) mg/dL Creatinine 0.8 (0.8-1.5) mg/dL Estimated GFR > 60 ml/min BUN/Creatinine Ratio 15 % Glucose 178 H (75-100) mg/dL POC Glucose (70-105) Calcium 8.5 (8.4-10.2) mg/dL Total Bilirubin < 0.20 (0.1-1.2) mg/dL AST 39 (5-40) units/L ALT 26 (7-56) units/L Alkaline Phosphatase 100 (35-129) units/L Total Protein 7.4 (6.3-8.2) g/dL Albumin 3.7 L (3.9-5) g/dL Albumin/Globulin Ratio 1.0 % Lipase (13-60) units/L Urine Color Yellow (Yellow) Urine Turbidity Slightly-cloudy (Clear) Urine pH 5.0 (5.0-7.0) Ur Specific [place] 1.021 (1.003-1.030) Urine Protein 100 mg/dl (Negative) mg/dL Urine Glucose (UA) 50 (Negative) mg/dL Urine Ketones Neg (Negative) mg/dL Urine Blood Sm (Negative) Urine Nitrite Neg (Negative) Urine Bilirubin Neg (Negative) Urine Urobilinogen < 2.0 (<2.0) mg/dL Ur Leukocyte Esterase Tr (Negative) Urine WBC (Auto) 32.0 H (0.0-6.0) /HPF Urine RBC (Auto) 15.0 (0.0-6.0) /HPF Calcium Oxalate Crystal 3+ Urine Mucus Few /HPF - Medical Decision Making This is a 57 y.o. male that presents with diarrhea and abdominal cramping for 3- 4 months. Patient is also complaining of slow healing diabetic ulcers to bilateral great toes and a new ulcer to left amor. Patient is stable and was examined by me. Blood pressure elevated. Patient off blood pressure and diabetic medication for 3-4 months. Obtained labs. Glucose elevation, blood gas decreased. Ketones negative. There is elevation in WBCs and trace leukocyte esterase on urinalysis. Consulted with attending Dr. Delgado and hospitalist Dr. Bone. IV site initiated. Given normal saline, Bentyl, and Imodium while in ER. Diabetic ulcers to bilateral great toes and left anterior tibia region. Patient referred to infectious disease and wound care but didn't continue therapy. Given instructions for life style modification and importance. Start metformin, gabapentin, and hydrochlorothiazide. Discussed plan with patient and agreed to plan. No further questions noted by the patient. Referral to [facility] and wound care for continued care. Discharged home in stable condition. Follow up with PCP in 2-3 days. Critical care attestation.: If time is entered above; I have spent that time in minutes in the direct care of this critically ill patient, excluding procedure time. ED Disposition Clinical Impression: Medication refill, Asymptomatic hypertension Diabetic foot ulcer associated with type 2 diabetes mellitus Qualifiers: Diabetic foot ulcer location: toe Laterality: left Non-pressure ulcer stage: with muscle involvement without evidence of necrosis Qualified Code(s): E11.621 - Type 2 diabetes mellitus with foot ulcer Diarrhea Qualifiers: Diarrhea type: functional diarrhea Qualified Code(s): K59.1 - Functional diarrhea Diabetic foot ulcer Qualifiers: Diabetic foot ulcer location: toe Diabetes mellitus type: type 2 Laterality: right Non-pressure ulcer stage: limited to breakdown of skin Qualified Code(s): E11.621 - Type 2 diabetes mellitus with foot ulcer Uncontrolled diabetes mellitus Qualifiers: Diabetes mellitus type: type 2 Glycemic state: with hyperglycemia Qualified Co de(s): E11.65 - Type 2 diabetes mellitus with hyperglycemia Disposition: - TO HOME OR SELFCARE Is pt being admited?: No Does the pt Need Aspirin: No Condition: Stable Instructions: Diabetes Mellitus Type 2 in Adults (ED), Hypertension (ED) Additional Instructions: Never discontinue metformin without discussion with your doctor. Low blood sugar is often accompanied by symptoms such as tachycardia, sweating, shakiness, intense hunger, or confusion, and must be dealt with promptly by eating a carbohydrate such as apple or drink juice. After self-treatment, blood sugar should be checked if possible. Return to ER or f/u with ER promptly is blood glucose drops below 70 or greater than 150 so that therapy may be adjusted. Eat a carbohydrate snack prior to exercise if blood glucose is less than 100. Encourage stop smoking to reduce cardiovascular risk. Moderate caffeine consumption is acceptable. Begin and maintain aerobic exercise, with a goal of at least 30 minutes of moderate intensity, dynamic aerobic exercise (walking, lawanda gging, cycling, or swimming) 5 days per week to total 150 minutes as tolerated or recommended by a physician. Take medication daily as prescribed. Return to the emergency room if you feel palpitations, shortness of breath, chest pain, dizziness or lightheadedness. Follow up with Primary Care Provider in 3-5 days. Prescriptions: Gabapentin [Neurontin] 100 mg PO Q8HR #90 capsule hydroCHLOROthiazide [HCTZ] 12.5 mg PO QDAY #30 capsule metFORMIN [Glucophage] 500 mg PO BID #60 tablet Pantoprazole [Protonix TAB] 40 mg PO QDAY #30 tablet Referrals: [facility] [Outside] - 3-[address] [facility] [Outside] - 3-5 Days [facility] [Outside] - 3-5 Days Time of Disposition: 22:58
[2018-04-27 19:04] LABS: Bilirubin,Urine NEG (Negative); Blood,Urine SM (Negative); Calcium Oxalate Crystals,Urine 3+; Color,Urine Yellow (Yellow); Mucus,Urine FEW /HPF; Urobilinogen,Urine < 2.0 mg/dL (<2.0)
[2018-04-27] MEDS ORDERED: NACL 0.9% 1000 ML 1,000 ML IV ONE (20:06)
[2018-04-27] MEDS ORDERED: BENTYL PO ONE (20:11)
[2018-04-27] MEDS ORDERED: IMODIUM A-D PO ONE (20:11)
[2018-04-27 22:24] LABS: Alanine Aminotransferase 26 units/L (7-56); Albumin 3.7 g/dL (3.9-5); BUN/Creatinine Ratio 15; Blood Urea Nitrogen 12 mg/dL (9-20); Calcium 8.5 mg/dL (8.4-10.2); Hemolysis Index 10
[2018-04-27 23:26] VITALS: BP 173/98
== END 2018-04-27 23:26 | disposition home or self-care (01) ==
LOC: ED 13:17
DX: E11.621 Type 2 diabetes mellitus with foot ulcer (principal); L97.511 Non-pressure chronic ulcer of other part of right foot limited to breakdown of skin; L97.525 Non-pressure chronic ulcer of other part of left foot with muscle involvement without evidence of necrosis; E11.65 Type 2 diabetes mellitus with hyperglycemia; K59.1 Functional diarrhea; I10 Essential (primary) hypertension; M10.9 Gout, unspecified; F17.200 Nicotine dependence, unspecified, uncomplicated
CPT/HCPCS: 36415; 80053; 81001; 82805; 82962; 83690; 85025; 96360; 99284; J7030